=== PATIENT | female | born 1980 | race Caucasian/White ===

== ENCOUNTER 2016-09-25 16:27 | Emergency (ER) | payer OTHER ==
[~2016-09-25] VITALS: Ht 157.5 cm; Wt 71.7 kg
[~2016-09-25 16:27] MED LIST: CITA20TA9 PO; CLIN300C86 PO; HYDR-971 PO; NAPR375T3 PO
[2016-09-25 17:56] VITALS: BP 124/70
[2016-09-25] MEDS ORDERED: CHLO15MO2 PO (18:32)
[2016-09-25] MEDS ORDERED: HYDR-971 PO (18:32)
--- NOTE | 2016-09-25 18:32 | PHYS DOC ---
Past Medical History Past Medical History: Other Additional Past Medical Histor: Reports fx pelvis- unsure what side. dental decay Past Surgical History: No Surgical History Additional Past Surgical Histo: 16 tooth dental extraction 07/24/2016 Alcohol Use: None Drug Use: None Adult General Chief Complaint Chief Complaint: EARACHE/EAR PAIN [facility] HPI Patient is a 36 year old female presents with complaint of left upper dental pain as well as gum swelling. Patient states the pain does radiate to her ear. Patient has had quite a bit of extensive dental work done to include having her teeth extracted by dentist and [place]. She is not having dental work done within the past 30 days she denies antibiotic use in the past 30 days. Review of Systems Review of Systems Constitutional: Denies fever or chills [] Eyes: Denies change in visual acuity, redness, or eye pain [] HENT: Denies nasal congestion or sore throat. Patient reports left upper dental pain and swelling. Patient reports pain radiates to her left ear. Patient denies any drainage from other ears. Respiratory: Denies cough or shortness of breath [] Cardiovascular: No additional information not addressed in HPI [] GI: Denies abdominal pain, nausea, vomiting, bloody stools or diarrhea [] : Denies dysuria or hematuria [] Musculoskeletal: Denies back pain or joint pain [] Integument: Denies rash or skin lesions [] Neurologic: Denies headache, focal weakness or sensory changes [] Endocrine: Denies polyuria or polydipsia [] Allergies Allergies Allergies Coded Allergies Type Severity Reaction Last Updated Verified Penicillins Allergy Intermediate rash 10/09/14 Yes Physical Exam Physical Exam Constitutional: Well developed, well nourished, no acute distress, non-toxic appearance. [] HENT: Normocephalic, atraumatic, bilateral external ears normal, oropharynx moist, no oral exudates, nose normal. There is no trismus. Patient's is edentulous in her maxillary region. She does have inflammation to the left maxillary gum. There are no fluctuant pockets or purulent drainage. Eyes: PERRLA, EOMI, conjunctiva normal, no discharge. [] Neck: Normal range of motion, no tenderness, supple, no stridor. [] Cardiovascular:Heart rate regular rhythm, no murmur [] Lungs & Thorax: Bilateral breath sounds clear to auscultation [] Abdomen: Bowel sounds normal, soft, no tenderness, no masses, no pulsatile masses. [] Skin: Warm, dry, no erythema, no rash. [] Back: No tenderness, no CVA tenderness. [] Extremities: No tenderness, no cyanosis, no clubbing, ROM intact, no edema. [] Neurologic: Alert and oriented X 3, normal motor function, normal sensory function, no focal deficits noted. [] Psychologic: Affect normal, judgement normal, mood normal. [] Current Patient Data Vital Signs Vital Signs Date Time Temp Pulse Resp B/P Pulse Ox O2 Delivery O2 Flow Rate FiO2 09/25/16 17:56 98.2 97 18 99 Room Air 98.2 EKG EKG [] Radiology/Procedures Radiology/Procedures [] Course & Med Decision Making Course & Med Decision Making Pertinent Labs and Imaging studies reviewed. (See chart for details) [] Dragon Disclaimer Dragon Disclaimer This electronic medical record was generated, in whole or in part, using a voice recognition dictation system. Departure Departure Impression: Primary Impression: Chronic gingivitis Disposition: HOME, SELF-CARE Condition: GOOD Referrals: NO PCP (PCP) Patient Instructions: Gingivitis, [id number] Additional Instructions: 1. Take the medication as prescribed. 2. Patient may contact with your dental office in [place] for follow-up care. 3. Be sure to review the discharge instructions, especially for reasons to return to the emergency department. Scripts Chlorhexidine Gluconate (Peridex)15 Ml [id number] Ml PO TID #473 ML Ref 3 Prov:KATELYN BAXTER 09/25/16 Hydrocodone/Apap 5-325 ([place] 5-325 Tablet)1 Each Tablet1 Tab PO PRN Q6HRS PRN PAIN #15 TAB Prov:KATELYN BAXTER 09/25/16 KATELYN BAXTER Sep 25, 2016 18:32
== END 2016-09-25 18:47 | disposition home or self-care (01) ==
LOC: ER 16:27
DX: K05.10 Chronic gingivitis, plaque induced (principal); Z88.0 Allergy status to penicillin
CPT/HCPCS: 99283

== ENCOUNTER 2016-11-26 22:32 | Emergency (ER) | payer SELFPAY ==
[~2016-11-26] VITALS: Ht 157.5 cm; Wt 69.9 kg
[~2016-11-26 22:32] MED LIST changes: +CHLO15MO2 PO
[2016-11-26 23:05] VITALS: BP 139/77
[2016-11-26] MEDS ORDERED: HYDR115S2 PO (23:29)
[2016-11-26] MEDS ORDERED: PRED50TA PO (23:29)
[2016-11-26] MEDS ORDERED: PROAIR HFA8.5 GM INH (23:29)
--- NOTE | 2016-11-26 23:29 | PHYS DOC ---
Past Medical History Past Medical History: Bronchitis, Other Additional Past Medical Histor: Reports fx pelvis- unsure what side. dental decay Past Surgical History: No Surgical History Additional Past Surgical Histo: 16 tooth dental extraction 07/24/2016 Alcohol Use: None Drug Use: None Adult General Chief Complaint Chief Complaint: SORE THROAT HPI HPI Patient is a 36 year old female smoker presents emergency room with complaint of ongoing cough, body aches and sore throat for approximately 2 weeks. Patient states that she took these azithromycin without any resolution of her symptoms. She states that she believes she has asthma, but she does continue to smoke. She states that she averages approximately 2 packs a day and is now down to half a pack a day. Prior to her current illness, she denied hospitalization, antibiotic use or foreign travel within the preceding 90 days. Patient complains of chest wall/rib pain secondary to her coughing. She denies any exertional dyspnea, orthopnea or PND. She denies palpitations. Patient denies . Review of Systems Review of Systems Constitutional: Denies fever or chills [] Eyes: Denies change in visual acuity, redness, or eye pain [] HENT: Denies nasal congestion or sore throat [] Respiratory: Denies cough or shortness of breath [] Cardiovascular: No additional information not addressed in HPI [] GI: Denies abdominal pain, nausea, vomiting, bloody stools or diarrhea [] : Denies dysuria or hematuria [] Musculoskeletal: Denies back pain or joint pain [] Integument: Denies rash or skin lesions [] Neurologic: Denies headache, focal weakness or sensory changes [] Endocrine: Denies polyuria or polydipsia [] Current Medications Current Medications Current Medications Medications (Trade) Dose Ordered Sig/Romelia Start Time Stop Time Status Last Admin Dose Admin Albuterol/ Ipratropium (Duoneb) 3 ml 1X ONCE 11/26/16 23:30 11/26/16 23:31 Prednisone (Prednisone) 50 mg 1X ONCE 11/26/16 23:30 11/26/16 23:31 11/26/16 23:19 50 MG Allergies Allergies Allergies Coded Allergies Type Severity Reaction Last Updated Verified Penicillins Allergy Intermediate rash 10/09/14 Yes Physical Exam Physical Exam Constitutional: Well developed, well nourished, no acute distress, non-toxic appearance. HENT: Normocephalic, atraumatic, bilateral external ears normal, oropharynx moist, no oral exudates, scant amount of clear rhinorrhea. Eyes: PERRLA, EOMI, conjunctiva normal, no discharge. [] Neck: Normal range of motion, no tenderness, supple, no stridor. There is no meningismus. There is bilateral anterior posterior cervical lymphadenopathy. Cardiovascular:Heart rate regular rhythm, no murmur [] Lungs & Thorax: There is no respiratory distress or respiratory fatigue. There is no posturing or sensory muscle use. Peripheral lung sounds are clear to auscultation bilaterally. Patient does have coarse central wheezing that does appear to clear with deep breath and cough. Abdomen: Bowel sounds normal, soft, no tenderness, no masses, no pulsatile masses. [] Skin: Warm, dry, no erythema, no rash. [] Back: No tenderness, no CVA tenderness. [] Extremities: No tenderness, no cyanosis, no clubbing, ROM intact, no edema. [] Neurologic: Alert and oriented X 3, normal motor function, normal sensory function, no focal deficits noted. [] Psychologic: Affect normal, judgement normal, mood normal. [] Current Patient Data Vital Signs Vital Signs Date Time Temp Pulse Resp B/P Pulse Ox O2 Delivery O2 Flow Rate FiO2 11/26/16 23:05 97.9 103 18 98 Room Air 97.9 EKG EKG [] Radiology/Procedures Radiology/Procedures [] Course & Med Decision Making Course & Med Decision Making Pertinent Labs and Imaging studies reviewed. (See chart for details) [] Dragon Disclaimer Dragon Disclaimer This electronic medical record was generated, in whole or in part, using a voice recognition dictation system. Departure Departure Impression: Primary Impression: Bronchitis Disposition: 01 HOME, SELF-CARE Condition: IMPROVED Referrals: NO PCP (PCP) Patient Instructions: Acute Bronchitis, Zqwy-[id number], Smoking Cessation, Tips For Success, Smoking, You Can Quit, [id number] Additional Instructions: 1. Take the medication as prescribed. 2. It is in your best interest to stop smoking. 3. Review the discharge instructions provided for self-care and reasons to return the emergency department. 4. Follow-up with a primary care doctor's office within the next 5-7 days. Scripts Albuterol Sulfate (Proair Hfa Inhaler)8.5 Gm [id number] Puff INH PRN Q6HRS PRN wheezing and cough #1 INHALER Ref 0 Prov:KATELYN BAXTER 11/26/16 Prednisone 50 Mg Tablet1 Tab PO DAILY #5 TAB Prov:KATELYN BAXTER 11/26/16 Hydrocodone/Chlorphen Polis (Tussionex Pennkinetic Susp)480 Ml Betty.er.[id number] Ml PO BID PRN COUGH #120 ML Prov:KATELYN BAXTER 11/26/16 KATELYN BAXTER Nov 26, 2016 23:29
[2016-11-26] MEDS ORDERED: PREDNISONE 20 MG TABLET PO ONE (23:30)
[2016-11-26] MEDS ORDERED: IPRATRPIUM/ALBUTEROL 0.5/2.5MG 3 ML NEBU. NEB ONE (23:30)
== END 2016-11-26 23:34 | disposition home or self-care (01) ==
LOC: ER 22:32
DX: J40 Bronchitis, not specified as acute or chronic (principal); F17.200 Nicotine dependence, unspecified, uncomplicated; Z88.0 Allergy status to penicillin
CPT/HCPCS: 94250; 94640; 99283; J7512; J7620

== ENCOUNTER 2017-02-26 18:45 | Emergency (ER) | payer SELFPAY ==
[~2017-02-26] VITALS: Ht 162.6 cm; Wt 63.5 kg
[~2017-02-26 18:45] MED LIST changes: +HYDR115S2 PO; +PRED50TA PO; +PROAIR HFA8.5 GM INH
[2017-02-26 19:08] VITALS: BP 116/80
[2017-02-26] MEDS ORDERED: CLIN-44 PO (20:03)
[2017-02-26] MEDS ORDERED: HYDR-971 PO (20:03)
--- NOTE | 2017-02-26 20:03 | PHYS DOC ---
Past Medical History Past Medical History: No Pertinent History Additional Past Medical Histor: Reports fx pelvis- unsure what side. dental decay Past Surgical History: No Surgical History Additional Past Surgical Histo: 16 tooth dental extraction 07/24/2016 Alcohol Use: None Drug Use: None Adult General Chief Complaint Chief Complaint: DENTAL PROBLEM HPI HPI Patient is a 36 year old female who presents with left upper gum swelling for a 1 month, patient states she got dentures a month ago. Patient states since then she's had swelling on and off on her gums. Patient states the dentist on her left upper gums. She is currently not wearing them she is requesting something for pain and antibiotics. Review of Systems Review of Systems Constitutional: Denies fever or chills [] Eyes: Denies change in visual acuity, redness, or eye pain [] HENT: Left upper gum pain and swelling Integument: Denies rash or skin lesions [] Neurologic: Denies headache, focal weakness or sensory changes [] Endocrine: Denies polyuria or polydipsia [] Current Medications Current Medications Current Medications Medications (Trade) Dose Ordered Sig/Romelia Start Time Stop Time Status Last Admin Dose Admin Acetaminophen/ Hydrocodone Bitart (Lortab 5/325) 1 tab 1X ONCE 02/26/17 20:15 02/26/17 20:16 Allergies Allergies Allergies Coded Allergies Type Severity Reaction Last Updated Verified Penicillins Allergy Intermediate rash 10/09/14 Yes Physical Exam Physical Exam Constitutional: Well developed, well nourished, no acute distress, non-toxic appearance. [] HENT: Normocephalic, atraumatic, bilateral external ears normal, oropharynx moist, no oral exudates, nose normal. [] Patient's is edentulous in her maxillary region with inflammation to the left maxillary gum. There are no fluctuant pockets or purulent drainage. Skin: Warm, dry, no erythema, no rash. [] Back: No tenderness, no CVA tenderness. [] Extremities: No tenderness, no cyanosis, no clubbing, ROM intact, no edema. [] Neurologic: Alert and oriented X 3, normal motor function, normal sensory function, no focal deficits noted. [] Psychologic: Affect normal, judgement normal, mood normal. [] Current Patient Data Vital Signs Vital Signs Date Time Temp Pulse Resp B/P (MAP) Pulse Ox O2 Delivery O2 Flow Rate FiO2 02/26/17 19:08 97.7 110 16 97 Room Air 97.7 02/26/17 19:06 116/80 (92) EKG EKG [] Radiology/Procedures Radiology/Procedures [] Course & Med Decision Making Course & Med Decision Making Pertinent Labs and Imaging studies reviewed. (See chart for details) Patient has left upper gum dental pain from dentures. She is also requesting antibiotics. I gave her prescription for clindamycin, gave her pain medicine prescription for hydrocodone with instruction for pharmacy not to be filled if she has filled any narcotics in the last 2 weeks and she must fill the clindamycin first. She is to follow-up with her dentist in March as scheduled Shoshana Disclaimer Shoshana Disclaimer This electronic medical record was generated, in whole or in part, using a voice recognition dictation system. Departure Departure Impression: Primary Impression: Dentalgia Disposition: HOME, SELF-CARE Condition: STABLE Referrals: NO PCP (PCP) follow up with your dentist as soon as possible Patient Instructions: Dental Pain Additional Instructions: You were seen for dental pain. Complete your antibiotics. Follow up with your dentist as soon as you can Scripts Clindamycin Hcl (CLINDAMYCIN HCL) 150 Mg Capsule 3 CAP PO TID, #90 CAP Prov: KAI ESPINO APRN 02/26/17 Hydrocodone/Apap 5-325 ([place] 5-325 TABLET) 1 Each Tablet 1-2 TAB PO Q4-6HRS, #12 TAB MUST FILL ANTIBIOTICS PRIOR TO NORCO CAN NOT FILL RX IF SHE HAS HAD ANY NARCOTICS IN THE LAST 14 DAYS. CAN NOT FILL RX PAST 02/26/2017 Prov: KAI ESPINO APRN 02/26/17 KAI ESPINO APRN Feb 26, 2017 20:03
[2017-02-26] MEDS ORDERED: HYDROcodone/APAP 5/325MG 1 TAB TABLET PO ONE (20:15)
== END 2017-02-26 20:11 | disposition home or self-care (01) ==
LOC: ER 18:45
DX: K05.10 Chronic gingivitis, plaque induced (principal); K08.409 Partial loss of teeth, unspecified cause, unspecified class; Z88.0 Allergy status to penicillin
CPT/HCPCS: 99283

== ENCOUNTER 2017-03-12 15:36 | Emergency (ER) | payer MEDICAID ==
[~2017-03-12] VITALS: Ht 157.5 cm; Wt 72.6 kg
[~2017-03-12 15:36] MED LIST changes: +CLIN150C14 PO; +CLIN300C8 PO; -CLIN300C86 PO
[2017-03-12 15:40] VITALS: BP 131/94
[2017-03-12] MEDS ORDERED: NAPR500T PO (15:51)
[2017-03-12] MEDS ORDERED: CLIN300C8 PO (15:51)
--- NOTE | 2017-03-12 15:51 | PHYS DOC ---
Past Medical History Past Medical History: No Pertinent History Additional Past Medical Histor: Reports fx pelvis- unsure what side. dental decay Past Surgical History: No Surgical History Additional Past Surgical Histo: 16 tooth dental extraction 07/24/2016 Alcohol Use: None Drug Use: None Adult General Chief Complaint Chief Complaint: DENTAL PROBLEM HPI HPI Patient is a 36 year old male presents to the emergency department with complaints of dental pain. She states this is been a chronic long-standing issue. No fever. No difficulty with swallowing or phonation. Review of Systems Review of Systems Constitutional: Denies fever or chills [] Eyes: Denies change in visual acuity, redness, or eye pain [] HENT: Oral pain Respiratory: Denies cough or shortness of breath [] Cardiovascular: No additional information not addressed in HPI [] GI: Denies abdominal pain, nausea, vomiting, bloody stools or diarrhea [] : Denies dysuria or hematuria [] Musculoskeletal: Denies back pain or joint pain [] Integument: Denies rash or skin lesions [] Neurologic: Denies headache, focal weakness or sensory changes [] Endocrine: Denies polyuria or polydipsia [] Allergies Allergies Allergies Coded Allergies Type Severity Reaction Last Updated Verified Penicillins Allergy Intermediate rash 10/09/14 Yes Physical Exam Physical Exam Constitutional: Well developed, well nourished, no acute distress, non-toxic appearance. [] HENT: Normocephalic, atraumatic, bilateral external ears normal, oropharynx moist, no oral exudates, nose normal, right upper gingiva with mild erythema. She is edentulous with the exception of teeth #22-26 [] Eyes: PERRLA, EOMI, conjunctiva normal, no discharge. [] Neck: Normal range of motion, no tenderness, supple, no stridor. [] Cardiovascular:Heart rate regular rhythm, no murmur [] Lungs & Thorax: Bilateral breath sounds clear to auscultation [] EKG EKG [] Radiology/Procedures Radiology/Procedures [] Course & Med Decision Making Course & Med Decision Making Patient was advised she would be receiving clindamycin and she has an allergy to penicillin. She is offered the option of Naprosyn or ibuprofen. The patient became very agitated and upset stated she will go to another facility because she needed hydrocodone for her pain. She reports that she has been at this facility multiple times before and received hydrocodone and is confused as to why she cannot have it again today. Pertinent Labs and Imaging studies reviewed. (See chart for details) [] Shoshana Disclaimer Shoshana Disclaimer This electronic medical record was generated, in whole or in part, using a voice recognition dictation system. Departure Departure Impression: Primary Impression: Chronic gingivitis Disposition: HOME, SELF-CARE Condition: STABLE Referrals: NO PCP (PCP) Patient Instructions: Gingivitis, [id number] Scripts Naproxen (NAPROSYN) 500 Mg Tablet 1 TAB PO BID Y for PAIN, #20 TAB 1 Refill Prov: JIA COOPER APRN 03/12/17 Clindamycin Hcl (CLINDAMYCIN HCL) 300 Mg Capsule 1 CAP PO TID, #30 CAP Prov: JIA COOPER APRN 03/12/17 JIA COOPER APRN Mar 12, 2017 15:51
== END 2017-03-12 15:46 | disposition home or self-care (01) ==
LOC: ER 15:36
DX: K05.10 Chronic gingivitis, plaque induced (principal); Z88.0 Allergy status to penicillin
CPT/HCPCS: 99281

== ENCOUNTER 2017-04-12 17:19 | Emergency (ER) | payer MEDICAID ==
[~2017-04-12] VITALS: Ht 157.5 cm; Wt 69.9 kg
[~2017-04-12 17:19] MED LIST changes: +NAPR500T PO
--- NOTE | 2017-04-12 17:32 | PHYS DOC ---
Past Medical History Past Medical History: No Pertinent History Additional Past Medical Histor: Reports fx pelvis- unsure what side. dental decay Past Surgical History: No Surgical History Additional Past Surgical Histo: 16 tooth dental extraction 07/24/2016 Alcohol Use: None Drug Use: None Adult General Chief Complaint Chief Complaint: HAND PROBLEM HPI HPI Patient is a 36 year old female presents to the emergency department with complaints of left hand pain. Patient states she was getting her child out of car when she inadvertently closed her left hand in the van door. She complains of pain of the left hand is here seeking evaluation. Review of Systems Review of Systems Musculoskeletal: Left Hand pain Current Medications Current Medications Current Medications Medications (Trade) Dose Ordered Sig/Romelia Start Time Stop Time Status Last Admin Dose Admin Acetaminophen/ Codeine Phosphate (Tylenol #3) 1 tab 1X ONCE 04/12/17 17:45 04/12/17 17:46 DC 04/12/17 17:36 1 TAB Allergies Allergies Allergies Coded Allergies Type Severity Reaction Last Updated Verified Penicillins Allergy Intermediate rash 10/09/14 Yes Physical Exam Physical Exam Constitutional: Well developed, well nourished, no acute distress, non-toxic appearance. [] Extremities: Left hand without swelling. She has ecchymosis and tenderness to palpate the MCP of the second third fingers. Full range of motion without difficulty. Neurovascular intact distally. Remainder hand exam unremarkable. Left wrist exam unremarkable. Current Patient Data Vital Signs Vital Signs Date Time Temp Pulse Resp B/P (MAP) Pulse Ox O2 Delivery O2 Flow Rate FiO2 04/12/17 17:43 98.2 92 18 100 Room Air 98.2 EKG EKG [] Radiology/Procedures Radiology/Procedures Left hand tray reviewed by myself, no acute changes. [] Course & Med Decision Making Course & Med Decision Making Pradeep bandage applied to the left hand per nursing staff. Neurovascular intact distally. Patient tolerated well. Pertinent Labs and Imaging studies reviewed. (See chart for details) [] Dragon Disclaimer Dragon Disclaimer This electronic medical record was generated, in whole or in part, using a voice recognition dictation system. Departure Departure Impression: Primary Impression: Contusion, hand Disposition: HOME, SELF-CARE Condition: STABLE Referrals: NO PCP (PCP) [facility] Patient Instructions: Contusion, Elastic Bandage and RICE Scripts Tramadol Hcl (TRAMADOL HCL) 50 Mg Tablet 50 MG PO TID Y for PAIN, #6 TAB 0 Refills Prov: JIA COOPER APRN 04/12/17 Problem Qualifiers Primary Impression: Contusion, hand Encounter type: initial encounter Laterality: left Qualified Codes: S60.222A - Contusion of left hand, initial encounter JIA COOPER [employer] Apr 12, 2017 17:32
[2017-04-12 17:43] VITALS: BP 135/77
[2017-04-12] MEDS ORDERED: ACETAMINOPHEN/CODEINE 300/30MG TABLET. PO ONE (17:45)
[2017-04-12] MEDS ORDERED: TRAM50TA PO (17:58)
--- NOTE | 2017-04-13 08:42 | RAD ---
Indication pain. AP oblique and lateral views of the left hand were obtained. No bony abnormality is seen
== END 2017-04-12 18:08 | disposition home or self-care (01) ==
LOC: ER 17:19
DX: S60.222A Contusion of left hand, initial encounter (principal); Z88.0 Allergy status to penicillin; W23.0XXA Caught, crushed, jammed, or pinched between moving objects, initial encounter; Y93.89 Activity, other specified; Y92.89 Other specified places as the place of occurrence of the external cause; Y99.8 Other external cause status
CPT/HCPCS: 73130; 99284